=== PATIENT | female | born 1980 | race Caucasian/White ===

== ENCOUNTER 2017-08-24 09:23 | Emergency (ER) | payer MEDICAID ==
[2017-08-24 09:28] VITALS: TEMP 98.1; O2SAT 99
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
[2017-08-24] MEDS ORDERED: ONDANSETRON DISINTEGRATING 4 MG TAB PO ONE ×2 (11:18)
[2017-08-24] MEDS ORDERED: ULIPRISTAL ACETATE 30 MG TAB PO ONE (11:18)
[2017-08-24] MEDS ORDERED: AZITHROMYCIN 250 MG TAB PO ONE (11:18)
[2017-08-24] MEDS ORDERED: IBUPROFEN 600 MG TAB PO ONE (11:18)
[2017-08-24 15:56] VITALS: BP 140/95; PULSE 95; RESP 16
[2017-08-24] MEDS ORDERED: NICOTINE 21 MG/24 HR PATCH TD ONE ×2 (16:22→16:23)
[2017-08-25] MEDS ORDERED: NICOTINE 7 MG/24 HR PATCH TD SCH (09:00)
== END 2017-08-24 16:00 | disposition home or self-care (01) ==
LOC: EEVIPCON 09:23 → SANE 16:00
DX: T74.21XA Adult sexual abuse, confirmed, initial encounter (principal); J45.909 Unspecified asthma, uncomplicated; F17.200 Nicotine dependence, unspecified, uncomplicated; R10.84 Generalized abdominal pain; Y07.50 Unspecified non-family member, perpetrator of maltreatment and neglect
CPT/HCPCS: J0696

== ENCOUNTER 2017-08-28 16:14 | Emergency (ER) | payer MEDICAID ==
[2017-08-28 16:21] VITALS: BP 158/108; PULSE 83; RESP 16; TEMP 98.6; O2SAT 99
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
[2017-08-28] MEDS ORDERED: clonazePAM 0.5 MG TAB PO ONE (17:36)
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
== END 2017-08-28 17:47 | disposition home or self-care (01) ==
DX: F41.8 Other specified anxiety disorders (principal); F17.200 Nicotine dependence, unspecified, uncomplicated